=== PATIENT | female | born 1985 | race Asian ===

== ENCOUNTER 2018-02-18 13:04 | Emergency (ER) | payer OTHER ==
[~2018-02-18] VITALS: Ht 162.6 cm; Wt 108.9 kg
[~2018-02-18 13:04] MED LIST: ADIPEX PO; ADIPEX-P37.5 M1 OR; HYDR25TA60 PO
[2018-02-18 13:15] VITALS: TEMP 97.9
[2018-02-18 14:11] VITALS: BP 118/76
== END 2018-02-18 14:11 | disposition home or self-care (01) ==
LOC: ED 13:04
DX: R30.0 Dysuria (principal); J03.90 Acute tonsillitis, unspecified
CPT/HCPCS: 81000; 87651; 99282